=== PATIENT | female | born 1970 | race African-American/Black ===

== ENCOUNTER 2023-04-08 21:08 | Emergency (ER) | payer OTHER, SELFPAY ==
[2023-04-08 21:07] VITALS: BP 162/84; PULSE 83; RESP 15; TEMP 36.7; O2SAT 99
[2023-04-08 21:15] VITALS: BP 162/84; PULSE 84; RESP 20; O2SAT 100
[2023-04-08 21:17] VITALS: BP 163/97; PULSE 92; RESP 21; O2SAT 100
--- NOTE | 2023-04-08 21:18 | ECG_ITS ---
Measurements Intervals [place] Rate: 81 P: 51 VA: 141 QRS: 24 QRSD: 78 T: 34 QT: 364 QTc: 423 Interpretive Statements SINUS RHYTHM EARLY PRECORDIAL R/S TRANSITION VOLTAGE CRITERIA FOR LVH BASELINE ARTIFACT- I, III, AVL, V2 BORDERLINE ECG NO PREVIOUS ECG AVAILABLE FOR COMPARISON Electronically Signed On 04-09-2023 6:21:49 CDT by Markus Bond D.O.
[2023-04-08 21:32] VITALS: BP 158/81; PULSE 88; RESP 20; O2SAT 99
[2023-04-08 21:47] VITALS: BP 150/81; PULSE 76; RESP 13; O2SAT 100
[2023-04-08] MEDS: MECLIZINE HCL 25 MG TABLET PO (22:20)
[2023-04-08] MEDS: SODIUM CHLORIDE 0.9% IV 1,000 ML 999 ML IV CONT (22:20)
--- NOTE | 2023-04-08 22:26 | PC.NURSE ---
Pt attempted to obtain urine sample at this time. Pt wsa unable to do so. Will attempt again after fluids.
[2023-04-08 22:29] LABS: Basophils Percent Auto 0.7 % (0.2-1.2); Eosinophils Absolute Auto 0.3 K/mm3 (0-0.3); Eosinophils Percent Auto 4.2 % (0-4.4); Hematocrit 38.3 % (37.0-47.0); Hemoglobin 12.7 g/dL (12.0-15.0); Immature Granulocyte Absolute 0.03 K/mm3 (0.00-0.031); Immature Granulocyte Percent A 0.5 % (0-0.5); Lymphocytes Absolute Auto 1.48 K/mm3 (0.9-3.2); Lymphocytes Percent Auto 24.7 % (18.3-44.2); Mean Corpuscular HGB Conc 33.2 g/dl (32-36); Mean Corpuscular Hemoglobin 29.3 pg (26-34); Mean Corpuscular Volume 88.2 fl (80-100); Monocytes Absolute Auto 0.5 K/mm3 (0.1-0.6); Monocytes Percent Auto 8.2 % (2.6-8.5); Neutrophils Absolute Auto 3.7 K/mm3 (1.3-6.7); Neutrophils Percent Auto 61.7 % (45.5-73.1); Platelet Count Result 326 k/mm3 (150-375); Red Blood Count 4.34 M/mm3 (4.2-5.4); Red Cell Distribution Width 15.8 % (11.5-14.5)
[2023-04-08 22:41] LABS: Alanine Aminotransferase 15 U/L (6-35); Albumin Level 4.1 g/dL (3.5-5.1); Alkaline Phosphatase 73 U/L (38-126); Anion Gap 7 mmol/L (8-16); Aspartate Amino Transferase 27 U/L (14-36); Bilirubin,Total 0.4 mg/dL (0.2-1.3); Blood Urea Nitrogen 11 mg/dL (7-17); Calcium 8.6 mg/dL (8.4-10.2); Carbon Dioxide 29 mmol/L (22-30); Chloride 102 mmol/L (98-107); Estimated CRCL calculation 72 ml/min; Estimated Glomerular Filt Rate > 60; Glucose 142 mg/dL (65-110); Magnesium 2.1 mg/dL (1.6-2.3); Potassium 3.5 mmol/L (3.4-5.0); Sodium 138 mmol/L (137-145)
[2023-04-08 22:42] LABS: Lactic Acid Reflex 0.9 mmol/L (0.7-2.0)
[2023-04-08 22:53] LABS: Troponin I < 0.012 ng/mL (0.000-0.034)
[2023-04-08 23:29] VITALS: BP 168/96; PULSE 86; RESP 16; O2SAT 98
--- NOTE | 2023-04-09 00:24 | ED.GENADULT ---
HPI - General Adult General Chief complaint: Dizziness Stated complaint: dizzy Time Seen by Provider: 04/08/23 21:35 History of Present Illness HPI narrative: Is a 52-year-old female who presents the emergency department with chief complaint of dizziness. The patient reports that she just started taking sertraline and then this evening she started feeling lightheadedness and some pressure in her head patient states she had nausea with this and reports that she was given Zofran prior to arrival and is feeling much better Related Data Allergies Allergy/AdvReac Type Severity Reaction Status Date / Time sulfur dioxide Allergy Unknown Verified 04/08/23 22:08 Review of Systems Review of Systems: A 10 system review of systems was completed on the patient and is negative except for what is stated in the HPI. Nursing and ancillary documentation was reviewed. Exam Narrative: GENERAL: Well-appearing, well-nourished, and in no acute distress. HEAD: Normocephalic, atraumatic. EYES: PERRLA and EOMI. ENT: Nares clear, no rhinorrhea or epistaxis. Mucous membranes moist. NECK: Supple. CHEST: Clear to auscultation. No respiratory distress. HEART: Regular rate and rhythm. No murmur heard. Normal peripheral pulses. ABDOMEN: Soft, nontender, nondistended, normal active bowel sounds. EXTREMITIES: Normal range of motion. No edema. SKIN: Warm, dry, no rash. NEURO: No focal deficits. Alert and oriented x3. PSYCH: Normal mood and affect. Course Vital Signs Vital signs: Vital Signs Temperature 36.7 C 04/08/23 21:07 Pulse Rate 83 04/08/23 21:07 Respiratory Rate 15 04/08/23 21:07 Blood Pressure 162/84 H 04/08/23 21:07 Pulse Oximetry 99 04/08/23 21:07 Oxygen Delivery Room Air 04/08/23 21:07 Temperature 36.7 C 04/08/23 21:07 Pulse Rate 86 04/08/23 23:29 Respiratory Rate 16 04/08/23 23:29 Blood Pressure 168/96 H 04/08/23 23:29 Pulse Oximetry 98 04/08/23 23:29 Oxygen Delivery Room Air 04/08/23 21:07 Medical Decision Making MDM Narrative Medical decision making narrative: Differential diagnosis includes dysrhythmia, vertigo, medication side effect, electrolyte abnormality Laboratory studies were obtained and patient she has normal CBC CMP was within normal limits lactate was normal troponin was negative urinalysis was obtained as well. Patient received a liter of normal saline and received a dose of Antivert Patient will be discharged home to follow-up with her primary care provider the patient is going to discontinue her sertraline. Vital Signs Vital Signs: Vital Signs Temperature 36.7 C 04/08/23 21:07 Pulse Rate 83 04/08/23 21:07 Respiratory Rate 15 04/08/23 21:07 Blood Pressure 162/84 H 04/08/23 21:07 Pulse Oximetry 99 04/08/23 21:07 Oxygen Delivery Room Air 04/08/23 21:07 Temperature 36.7 C 04/08/23 21:07 Pulse Rate 86 04/08/23 23:29 Respiratory Rate 16 04/08/23 23:29 Blood Pressure 168/96 H 04/08/23 23:29 Pulse Oximetry 98 04/08/23 23:29 Oxygen Delivery Room Air 04/08/23 21:07 Lab Data 04/08/23 22:24 04/08/23 22:24 Labs: Lab Results 04/08/23 04/08/23 Range/Units 22:24 23:48 WBC 6.0 (4.5-10.0) K/mm3 RBC 4.34 (4.2-5.4) M/mm3 Hgb 12.7 (12.0-15.0) g/dL Hct 38.3 (37.0-47.0) % MCV 88.2 (80-100) fl MCH 29.3 (26-34) pg MCHC 33.2 (32-36) g/dl RDW 15.8 H (11.5-14.5) % Plt Count 326 (150-375) k/mm3 MPV 11.0 H (7.4-10.4) fl Immature Gran % (Auto) 0.5 (0-0.5) % Neut % (Auto) 61.7 (45.5-73.1) % Lymph % (Auto) 24.7 (18.3-44.2) % Emanuel % (Auto) 8.2 (2.6-8.5) % Eos % (Auto) 4.2 (0-4.4) % Baso % (Auto) 0.7 (0.2-1.2) % Lymph # (Auto) 1.48 (0.9-3.2) K/mm3 Emanuel # (Auto) 0.5 (0.1-0.6) K/mm3 Eos # (Auto) 0.3 (0-0.3) K/mm3 Baso # (Auto) 0.0 (0.0-0.1) K/mm3 Abs Immat Gran (auto) 0.03 (0.00-0.031) K/mm3 Absolute Neuts (
[2023-04-09 00:33] LABS: Appearance Urine Clear (Clear); Bacteria Urine None Seen /hpf; Bilirubin Urine Negative (Negative); Blood Urine 2+ (Negative); Color Urine Yellow (Yellow); Glucose Urine UA Negative (Negative); Ketones Urine Negative (Negative); Leukocyte Esterase Ur Negative LEU/UL (Negative); Nitrate Urine Negative (Negative); Non Pathogenic Casts 0-2; Protein Urine Negative (Negative); RBC Urine 0-2 /hpf (0-2); Specific Grav Ur 1.004 (1.001-1.035); Squamous Epithelial Cell Urine None seen /hpf (Few); Urobilinogen Urine 0.2 mg/dL (<2.0); WBC Urine 0-5 /hpf; pH Urine 7.5 (5.0-9.0)
[2023-04-09 00:34] LABS: Add Urine Microscopic? YES
[2023-04-09 00:40] VITALS: BP 156/85; PULSE 73; RESP 17; O2SAT 100
== END 2023-04-09 00:42 | disposition home or self-care (01) ==
PROVIDERS: Emergency Provider Emergency Medicine
DX: R42 Dizziness and giddiness (principal); T43.225A Adverse effect of selective serotonin reuptake inhibitors, initial encounter
CPT/HCPCS: 36415; 80053; 81001; 83605; 83735; 84484; 85025; 93005; 96360; 96361; 99284; A9270; J7030